=== PATIENT | female | born 1955 | race Two or more races ===

== ENCOUNTER 2019-06-21 13:29 | Emergency (ER) | payer OTHER ==
[~2019-06-21] VITALS: Ht 157.5 cm; Wt 66.2 kg
[2019-06-21] MEDS ORDERED: ZESTRIL10 M1 PO (13:51)
[2019-06-21] MEDS ORDERED: VERAPAMIL HCL80 MG PO (13:51)
== END 2019-06-21 19:49 | disposition home or self-care (01) ==
LOC: ER 13:29
DX: J45.998 Other asthma (principal)